=== PATIENT | male | born 1955 | race Caucasian/White ===

== ENCOUNTER 2021-02-01 10:51 | Emergency (ER) | payer MEDICAID ==
[~2021-02-01] VITALS: Ht 190.5 cm; Wt 75.0 kg
[2021-02-01 10:54] VITALS: BP 169/76
--- NOTE | 2021-02-01 11:09 | NUR ---
PT BIB [facility]. PT CO 05/09 LEFT SIDED PAIN FROM LEG ALL THE WAY UP TO HIS SHOULDER. PT HAS LEFT BKA AND IS ALSO CO PHANTOM PAIN IN THE EXTREMITY. PT HAS HISTORY OF DIABETES AND TAKE GABAENTIN AT HOME FOR PAIN. PT DENIES ANY RECENT TRAUMA, FEVER, SOB, CP, N/V/D.
--- NOTE | 2021-02-01 11:57 | NUR ---
TP RN: [facility] CALLED FOR TRANSPORT BACK TO [facility], PATIENT SCHEDULED FOR 1400 PICKUP.
--- NOTE | 2021-02-01 12:31 | NUR ---
PT ASKED TO BE DISCAHRGED VIA [facility] INSTEAD OF [facility]. PT STATED THAT HE WOULD CALL SECURITY AT THE [facility] TO MEET HIM OUTSIDE WITH WHEELCHAIR. DISCHARGE INTRUCTIONS REVIEWED WITH PT. PT TAKEN TO ER [facility] IN WHEELCHAIR.
[2021-02-02] MEDS ORDERED: METF500T17 PO (12:48)
== END 2021-02-01 12:35 | disposition home or self-care (01) ==
LOC: ED 11:37
DX: M79.662 Pain in left lower leg (principal); I10 Essential (primary) hypertension; E11.9 Type 2 diabetes mellitus without complications; G89.29 Other chronic pain
CPT/HCPCS: 99283

== ENCOUNTER 2021-02-02 12:09 | Emergency (ER) | payer MEDICAID ==
[~2021-02-02] VITALS: Ht 190.5 cm; Wt 73.0 kg
--- NOTE | 2021-02-02 12:09 | NUR ---
Pt moved himself from EMS gurney to ER gurney without issue. Wheelchair of pt brought into room by EMS staff. ski technician and assessment completed, and pt placed in gown with call light in reach. Pt on BP and SpO2 monitor only.
--- NOTE | 2021-02-02 12:30 | NUR ---
Urinal provided for pt.
--- NOTE | 2021-02-02 12:35 | NUR ---
at bedside for exam.
[2021-02-02] MEDS ORDERED: METF500T17 PO (12:48)
--- NOTE | 2021-02-02 12:48 | NUR ---
MD notified of EMS report about conversation with pt's pain management MD upon his leaving pt's room. Phone number of MD in [place] [phone]. Pt currently heard in room using abusive language about MD due to education provided that repeat prescription for pain medication will not be given today.
[2021-02-02] MEDS ORDERED: KETOROLAC 60 MG/2 ML ONE (12:56)
[2021-02-02] MEDS ORDERED: KETOROLAC 30 MG/1 ML IM ONE (13:00)
--- NOTE | 2021-02-02 13:05 | NUR ---
Toradol given as ordered for pain.
--- NOTE | 2021-02-02 13:15 | NUR ---
Pt able to transfer himself from [facility] to his wheelchair. Pt given d/c instructions with stated understanding but discontent with instructions to follow up with his pain management or primary care physicians in [place].
[2021-02-02 13:18] VITALS: BP 156/78
== END 2021-02-02 13:20 | disposition home or self-care (01) ==
LOC: ED 13:10
DX: G89.29 Other chronic pain (principal); M79.662 Pain in left lower leg; I10 Essential (primary) hypertension; M54.5 Low back pain; E11.9 Type 2 diabetes mellitus without complications
CPT/HCPCS: 96372; 99283; J1885

== ENCOUNTER 2021-02-04 17:38 | Emergency (ER) | payer MEDICAID ==
[~2021-02-04] VITALS: Ht 190.5 cm; Wt 73.0 kg
[~2021-02-04 17:38] MED LIST: METF500T17 PO
[2021-02-04 17:42] VITALS: BP 165/71
--- NOTE | 2021-02-04 19:08 | NUR ---
No answer [phone]
--- NOTE | 2021-02-04 19:51 | NUR ---
Charge Nurse NIL x2
== END 2021-02-04 20:00 ==
LOC: ED 17:45
DX: M79.652 Pain in left thigh (principal); Z53.21 Procedure and treatment not carried out due to patient leaving prior to being seen by health care provider
CPT/HCPCS: 99281